=== PATIENT | female | born 1940 | race Caucasian/White ===

== ENCOUNTER → 2019-06-22 | Outpatient (CLI) | payer MEDICARE ==
[2019-06-22 09:55] LABS: ABG BASE EXCESS 22.6 mmol/L (-2.0-2.0); ABG HCO3 50.4 mmol/l (22-26); ABG O2 SATURATION 95.9 % (95-97); ARTERIAL BLOOD GAS PH 7.465 (7.35-7.45); ARTERIAL BLOOD GAS PO2 75.3 mmHg (80-90)
[2019-06-22 10:58] LABS: BUN 11 mg/dl (7-24); CREATININE 0.59 mg/dL (0.55-1.02); SODIUM 140 mmol/L (136-145)
[2019-06-22 11:21] LABS: CHLORIDE 88 mmol/L (98-107)
== END | disposition home or self-care (01) ==
LOC: LAB 09:30
PROVIDERS: Internal Medicine Critical Care Medicine
DX: I11.0 Hypertensive heart disease with heart failure (principal); I50.23 Acute on chronic systolic (congestive) heart failure; M12.9 Arthropathy, unspecified; L03.113 Cellulitis of right upper limb; K21.9 Gastro-esophageal reflux disease without esophagitis; M62.81 Muscle weakness (generalized); J96.00 Acute respiratory failure, unspecified whether with hypoxia or hypercapnia; Z68.42 Body mass index [BMI] 45.0-49.9, adult; J44.9 Chronic obstructive pulmonary disease, unspecified; E66.01 Morbid (severe) obesity due to excess calories; I48.91 Unspecified atrial fibrillation

== ENCOUNTER 2019-09-05 11:24 | Inpatient (IN) | payer MEDICARE ==
[~2019-09-05] VITALS: Ht 157.4 cm; Wt 115.8 kg
[~2019-09-05 11:24] MED LIST: MUCINEX ER600 MG PO
[2019-09-05 11:33] VITALS: BP 108/62
[2019-09-05 12:44] LABS: BASO % 0.3 % (0.0-1.0); EOS % 0.3 % (1.0-4.0); HEMATOCRIT 33.7 % (37.0-47.0); HEMOGLOBIN 10.1 g/dl (12.0-16.0); LYMPH # 1.1 10*3/uL (1.3-4.4); MEAN CORPUSCULAR HGB 31.2 pg (27.0-31.0); MEAN PLATELET VOLUME 11.5 fl (9.6-12.3); MONO # 0.8 10*3/uL (0.1-1.0); NEUT # 5.8 10*3/uL (2.3-7.9); NEUT % 74.6 % (47.0-73.0); PLATELET COUNT AUTOMATED 177 10*3/uL (130-400); RED BLOOD COUNT 3.24 10*6/uL (4.10-5.10); RED CELL DISTRI WIDTH 13.3 % (0-14.5); WHITE BLOOD COUNT 7.8 10*3/uL (4.8-10.8)
[2019-09-05 13:01] LABS: ALBUMIN 2.5 gm/dl (3.1-4.5); ALKALINE PHOSPHATASE 82 U/L (45-117); BUN 12 mg/dl (7-24); CHLORIDE 93 mmol/L (98-107); POTASSIUM 4.2 mmol/L (3.5-5.1); SGOT/AST 13 IU/L (3-35); SGPT/ALT 15 U/L (12-78); SODIUM 138 mmol/L (136-145); TOTAL PROTEIN 7.6 gm/dL (6.4-8.2)
[2019-09-05 13:07] LABS: TROPONIN I < 0.015 ng/ml (<0.045)
[2019-09-05 13:09] VITALS: BP 123/60
[2019-09-05 13:40] VITALS: BP 125/68
[2019-09-05 14:50] VITALS: BP 132/68
[2019-09-05 15:40] VITALS: BP 117/31; BP 117/61
[2019-09-05 15:45] LABS: ABG BASE EXCESS 14.8 mmol/L (-2.0-2.0); ARTERIAL BLOOD GAS PH 7.421 (7.35-7.45)
[2019-09-05] MEDS ORDERED: BREO ELLIPTA 11 EACH INH (19:56)
[2019-09-05] MEDS ORDERED: ASPIRIN81 M1 PO (19:56)
[2019-09-05] MEDS ORDERED: MELATONIN3 M3 PO (19:58)
[2019-09-05] MEDS ORDERED: METOPROLOL SUC100 M1 PO (19:59)
[2019-09-05 20:00] VITALS: BP 109/64
[2019-09-05] MEDS ORDERED: MULTIVITAMINS1 EAC5 PO (20:01)
[2019-09-05] MEDS ORDERED: NATURE'S BLEND F1 MG PO (20:02)
[2019-09-05] MEDS ORDERED: ELIQUIS5 M1 PO (20:02)
[2019-09-05] MEDS ORDERED: GLUCOSAMINE CH1 EAC1 PO (20:04)
[2019-09-05] MEDS ORDERED: FEROSUL325 MG PO (20:04)
[2019-09-05] MEDS ORDERED: LASIX40 MG PO (20:05)
[2019-09-05] MEDS ORDERED: PANTOPRAZOLE SO40 MG PO (20:08)
[2019-09-05] MEDS ORDERED: KLOR-CON M2020 ME1 PO (20:11)
[2019-09-05] MEDS ORDERED: TYLENOL325 M1 PO (20:12)
[2019-09-05] MEDS ORDERED: Ipratropium Brom3 ML INH (20:13)
[2019-09-05] MEDS ORDERED: ACCUNEB 0.1.25 MG/1 INH (20:14)
[2019-09-05] MEDS ORDERED: DEPO MEDRO40 MG/1 ML IM (20:15)
[2019-09-05] MEDS ORDERED: IMODIUM A-D2 M2 PO (20:18)
[2019-09-05] MEDS ORDERED: MILK OF MA400 MG/5 M PO (20:20)
[2019-09-05] MEDS ORDERED: TUSSIN DM 10 M237 M1 PO (20:21)
[2019-09-06 00:10] VITALS: BP 119/68
[2019-09-06 06:30] LABS: BASO % 0.2 % (0.0-1.0); HEMATOCRIT 34.9 % (37.0-47.0); HEMOGLOBIN 10.3 g/dl (12.0-16.0); LYMPH # 0.9 10*3/uL (1.3-4.4); LYMPH % 13.6 % (27.0-41.0); MEAN CELL VOLUME 102.6 fl (81.0-99.0); MEAN CORPUSCULAR HGB 30.3 pg (27.0-31.0); MEAN CORPUSCULAR HGB CONC 29.5 g/dl (33.0-37.0); MEAN PLATELET VOLUME 11.5 fl (9.6-12.3); MONO # 0.3 10*3/uL (0.1-1.0); MONO % 4.8 % (3.0-9.0); NEUT # 5.2 10*3/uL (2.3-7.9); PLATELET COUNT AUTOMATED 212 10*3/uL (130-400); RED CELL DISTRI WIDTH 13.3 % (0-14.5); WHITE BLOOD COUNT 6.6 10*3/uL (4.8-10.8)
[2019-09-06 06:36] LABS: INTERNATIONAL NORM RATIO 1.1 (2.0-3.5)
[2019-09-06 06:58] LABS: ALBUMIN 2.5 gm/dl (3.1-4.5); ALKALINE PHOSPHATASE 84 U/L (45-117); BUN 21 mg/dl (7-24); CHLORIDE 92 mmol/L (98-107); CHOLESTEROL 155 mg/dL (<200); CREATININE 0.99 mg/dL (0.55-1.02); HDL CHOLESTEROL 58 mg/dl (40-60); LDL CHOLESTEROL 81 mg/dL (9-159); PHOSPHOROUS 2.8 mg/dL (2.5-4.9); POTASSIUM 4.1 mmol/L (3.5-5.1); SGOT/AST 10 IU/L (3-35); SGPT/ALT 15 U/L (12-78); SODIUM 137 mmol/L (136-145); TRIGLYCERIDES 80 mg/dl (<150); VLDL CHOLESTEROL 16 mg/dL (6-40)
[2019-09-06 07:02] LABS: THYROID STIM HORMONE (HS) 0.279 uIU/ml (0.358-4.75)
[2019-09-06 07:05] LABS: VITAMIN D, 25-HYDROXY 32.4 ng/mL (30-100)
[2019-09-06 08:00] VITALS: BP 128/78
[2019-09-06 12:00] VITALS: BP 129/68
[2019-09-06 16:00] VITALS: BP 118/55
[2019-09-06 20:00] VITALS: BP 149/70
[2019-09-06 23:36] VITALS: BP 126/71
[2019-09-07] VITALS (7 sets, daily range): BP systolic 113–153; BP diastolic 69–92
[2019-09-07 06:47] LABS: BASO % 0.2 % (0.0-1.0); HEMATOCRIT 33.6 % (37.0-47.0); HEMOGLOBIN 9.9 g/dl (12.0-16.0); LYMPH # 1.1 10*3/uL (1.3-4.4); LYMPH % 12.5 % (27.0-41.0); MEAN CELL VOLUME 103.4 fl (81.0-99.0); MEAN CORPUSCULAR HGB 30.5 pg (27.0-31.0); MEAN CORPUSCULAR HGB CONC 29.5 g/dl (33.0-37.0); MEAN PLATELET VOLUME 11.8 fl (9.6-12.3); MONO # 0.4 10*3/uL (0.1-1.0); MONO % 4.1 % (3.0-9.0); NEUT # 6.8 10*3/uL (2.3-7.9); NEUT % 80.5 % (47.0-73.0); PLATELET COUNT AUTOMATED 216 10*3/uL (130-400); RED BLOOD COUNT 3.25 10*6/uL (4.10-5.10); RED CELL DISTRI WIDTH 13.4 % (0-14.5); WHITE BLOOD COUNT 8.5 10*3/uL (4.8-10.8)
[2019-09-07 07:21] LABS: CHLORIDE 95 mmol/L (98-107); CREATININE 1.01 mg/dL (0.55-1.02)
[2019-09-07 07:49] LABS: SODIUM 137 mmol/L (136-145)
[2019-09-07 07:51] LABS: BUN 32 mg/dl (7-24); POTASSIUM 5.2 mmol/L (3.5-5.1)
[2019-09-08] VITALS: BP 130/90
[2019-09-08 06:52] LABS: HEMATOCRIT 33.9 % (37.0-47.0); MEAN CORPUSCULAR HGB 30.7 pg (27.0-31.0); MEAN CORPUSCULAR HGB CONC 29.5 g/dl (33.0-37.0); MEAN PLATELET VOLUME 11.6 fl (9.6-12.3); PLATELET COUNT AUTOMATED 231 10*3/uL (130-400); RED BLOOD COUNT 3.26 10*6/uL (4.10-5.10); RED CELL DISTRI WIDTH 13.5 % (0-14.5); WHITE BLOOD COUNT 9.5 10*3/uL (4.8-10.8)
[2019-09-08 07:13] LABS: PLATELET SUFFICIENCY NORMAL (NORMAL); POLYCHROMASIA SLIGHT; TOTAL CELLS COUNTED 100 #CELLS
[2019-09-08 07:14] LABS: TOXIC GRANULATION SLIGHT
[2019-09-08 07:22] LABS: BUN 32 mg/dl (7-24); CHLORIDE 95 mmol/L (98-107); POTASSIUM 5.6 mmol/L (3.5-5.1); SODIUM 136 mmol/L (136-145)
[2019-09-08 07:24] LABS: CREATININE 0.97 mg/dL (0.55-1.02)
[2019-09-08 08:04] VITALS: BP 118/84
[2019-09-08 12:00] VITALS: BP 132/63
[2019-09-08 14:22] LABS: CREATININE 1.07 mg/dL (0.55-1.02); POTASSIUM 5.1 mmol/L (3.5-5.1)
[2019-09-08] MEDS ORDERED: PREDNISONE10 MG PO (14:27)
[2019-09-08] MEDS ORDERED: DOXYCYCLINE100 M3 PO (14:27)
[2019-09-08] MEDS ORDERED: K-TAB20 MEQ PO (14:27)
[2019-09-08 15:07] LABS: ACID FAST SPEC PROCESSING Concentration (.)
== END 2019-09-08 16:51 | disposition other institution (70) | DRG 871 ==
LOC: ED 11:24 → 4E 13:37 → EDHOLD 13:37 → 4E 14:34
PROVIDERS: Internal Medicine Critical Care Medicine; Nurse Practitioner Family; Student in an Organized Health Care Education/Training Program; ADMIT Family Medicine
PROC: 5A09357 Assistance with Respiratory Ventilation, Less than 24 Consecutive Hours, Continuous Positive Airway Pressure (ICD-10-PCS; principal; 2019-09-06)
PROC: 0B958ZZ Drainage of Right Middle Lobe Bronchus, Via Natural or Artificial Opening Endoscopic (ICD-10-PCS; 2019-09-07)
PROC: 0B918ZZ Drainage of Trachea, Via Natural or Artificial Opening Endoscopic (ICD-10-PCS; 2019-09-07)
PROC: 0B938ZZ Drainage of Right Main Bronchus, Via Natural or Artificial Opening Endoscopic (ICD-10-PCS; 2019-09-07)
PROC: 0B928ZZ Drainage of Carina, Via Natural or Artificial Opening Endoscopic (ICD-10-PCS; 2019-09-07)
PROC: 0B988ZZ Drainage of Left Upper Lobe Bronchus, Via Natural or Artificial Opening Endoscopic (ICD-10-PCS; 2019-09-07)
PROC: 0B978ZZ Drainage of Left Main Bronchus, Via Natural or Artificial Opening Endoscopic (ICD-10-PCS; 2019-09-07)
PROC: 5A09357 Assistance with Respiratory Ventilation, Less than 24 Consecutive Hours, Continuous Positive Airway Pressure (ICD-10-PCS; 2019-09-07)
PROC: 0B968ZZ Drainage of Right Lower Lobe Bronchus, Via Natural or Artificial Opening Endoscopic (ICD-10-PCS; 2019-09-07)
PROC: 0B998ZZ Drainage of Lingula Bronchus, Via Natural or Artificial Opening Endoscopic (ICD-10-PCS; 2019-09-07)
PROC: 0B948ZZ Drainage of Right Upper Lobe Bronchus, Via Natural or Artificial Opening Endoscopic (ICD-10-PCS; 2019-09-07)
PROC: 5A09357 Assistance with Respiratory Ventilation, Less than 24 Consecutive Hours, Continuous Positive Airway Pressure (ICD-10-PCS; 2019-09-08)
DX: A41.9 Sepsis, unspecified organism (principal); J18.9 Pneumonia, unspecified organism; E43 Unspecified severe protein-calorie malnutrition; T17.590A Other foreign object in bronchus causing asphyxiation, initial encounter; J96.12 Chronic respiratory failure with hypercapnia; J44.0 Chronic obstructive pulmonary disease with (acute) lower respiratory infection; Z68.42 Body mass index [BMI] 45.0-49.9, adult; J44.1 Chronic obstructive pulmonary disease with (acute) exacerbation; D68.69 Other thrombophilia; J96.11 Chronic respiratory failure with hypoxia; E87.3 Alkalosis; I50.9 Heart failure, unspecified; I11.0 Hypertensive heart disease with heart failure; J20.9 Acute bronchitis, unspecified; E87.5 Hyperkalemia; D53.9 Nutritional anemia, unspecified; R73.9 Hyperglycemia, unspecified; E87.8 Other disorders of electrolyte and fluid balance, not elsewhere classified; K21.9 Gastro-esophageal reflux disease without esophagitis; G47.00 Insomnia, unspecified; G47.33 Obstructive sleep apnea (adult) (pediatric); I27.20 Pulmonary hypertension, unspecified; I48.91 Unspecified atrial fibrillation; E66.01 Morbid (severe) obesity due to excess calories; R65.20 Severe sepsis without septic shock; X58.XXXA Exposure to other specified factors, initial encounter; Y93.89 Activity, other specified; Z88.8 Allergy status to other drugs, medicaments and biological substances; Z79.82 Long term (current) use of aspirin; Z79.899 Other long term (current) drug therapy; Z88.0 Allergy status to penicillin

== ENCOUNTER 2021-01-20 00:18 | Inpatient (IN) | payer MEDICARE, MEDICAID ==
[2021-01-20] VITALS (7 sets, daily range): BP systolic 106–128; BP diastolic 52–89
[~2021-01-20] VITALS: Ht 157.5 cm; Wt 144.3 kg
[~2021-01-20 00:18] MED LIST changes: +ACCUNEB 0.1.25 MG/1 INH; +ASPIRIN81 M1 PO; +BREO ELLIPTA 11 EACH INH; +DEPO MEDRO40 MG/1 ML IM; +DOXYCYCLINE100 M3 PO; +ELIQUIS5 M1 PO; +FEROSUL325 MG PO; +GLUCOSAMINE CH1 EAC1 PO; +IMODIUM A-D2 M2 PO; +Ipratropium Brom3 ML INH; +K-TAB20 MEQ PO; +KLOR-CON M2020 ME1 PO; +LASIX40 MG PO; +MELATONIN3 M3 PO; +METOPROLOL SUC100 M1 PO; +MILK OF MA400 MG/5 M PO; +MULTIVITAMINS1 EAC5 PO; +NATURE'S BLEND F1 MG PO; +PANTOPRAZOLE SO40 MG PO; +PREDNISONE10 MG PO; +TUSSIN DM 10 M237 M1 PO; +TYLENOL325 M1 PO
[2021-01-20 00:51] LABS: HEMATOCRIT 41.9 % (37.0-47.0); MEAN CELL VOLUME 98.4 fl (81.0-99.0); MEAN CORPUSCULAR HGB 30.8 pg (27.0-31.0); MEAN CORPUSCULAR HGB CONC 31.3 g/dl (33.0-37.0); MEAN PLATELET VOLUME 12.7 fl (9.6-12.3); PLATELET COUNT AUTOMATED 114 10*3/uL (130-400); RED BLOOD COUNT 4.26 10*6/uL (4.10-5.10); RED CELL DISTRI WIDTH 13.8 % (0-14.5); WHITE BLOOD COUNT 7.4 10*3/uL (4.8-10.8)
[2021-01-20 01:05] LABS: BILIRUBIN Negative (Negative); BLOOD 3+ (Negative); CLARITY Cloudy (Clear); COLOR Yellow (Yellow); GLUCOSE Negative (Negative); KETONE Negative (Negative); LEUKO ESTERASE 3+ (Negative); NITRITE Negative (Negative)
[2021-01-20 01:10] LABS: PLATELET SUFFICIENCY LOW (NORMAL); TOTAL CELLS COUNTED 100 #CELLS
[2021-01-20 01:13] LABS: ALBUMIN 3.4 gm/dl (3.1-4.5); ALKALINE PHOSPHATASE 138 U/L (45-117); BUN 23 mg/dl (7-24); CHLORIDE 103 mmol/L (98-107); CREATININE 1.03 mg/dL (0.55-1.02); POTASSIUM 4.3 mmol/L (3.5-5.1); SGOT/AST 14 IU/L (3-35); SGPT/ALT 20 U/L (12-78); SODIUM 140 mmol/L (136-145); TOTAL PROTEIN 7.5 gm/dL (6.4-8.2)
[2021-01-20 01:13] LABS: EPITHELIAL CELLS TNTC
[2021-01-20 01:14] LABS: TROPONIN I < 0.015 ng/ml (<0.045)
[2021-01-20 01:14] LABS: BACTERIA 1+; RBC 21-30 rbc/hpf (0-2); WBC 31-40 wbc/hpf (0-5)
[2021-01-20] MEDS ORDERED: TRAD5TAB1 PO (04:33)
[2021-01-20] MEDS ORDERED: NAPROXEN375 MG PO (04:35)
[2021-01-20] MEDS ORDERED: XARE20MG PO (04:58)
[2021-01-20 06:47] LABS: BASO % 0.1 % (0.0-1.0); HEMATOCRIT 35.8 % (37.0-47.0); LYMPH # 0.8 10*3/uL (1.3-4.4); LYMPH % 6.9 % (27.0-41.0); MEAN CELL VOLUME 98.4 fl (81.0-99.0); MEAN CORPUSCULAR HGB 31.3 pg (27.0-31.0); MEAN CORPUSCULAR HGB CONC 31.8 g/dl (33.0-37.0); MEAN PLATELET VOLUME 12.5 fl (9.6-12.3); MONO # 0.9 10*3/uL (0.1-1.0); MONO % 7.7 % (3.0-9.0); NEUT # 10.1 10*3/uL (2.3-7.9); NEUT % 84.9 % (47.0-73.0); PLATELET COUNT AUTOMATED 112 10*3/uL (130-400); RED BLOOD COUNT 3.64 10*6/uL (4.10-5.10)
[2021-01-20 07:02] LABS: ALBUMIN 2.6 gm/dl (3.1-4.5); ALKALINE PHOSPHATASE 106 U/L (45-117); BUN 20 mg/dl (7-24); CHLORIDE 109 mmol/L (98-107); CREATININE 0.95 mg/dL (0.55-1.02); POTASSIUM 4.3 mmol/L (3.5-5.1); SGOT/AST 13 IU/L (3-35); SGPT/ALT 17 U/L (12-78); SODIUM 141 mmol/L (136-145); TOTAL PROTEIN 6.3 gm/dL (6.4-8.2)
[2021-01-21 08:00] VITALS: BP 123/51
[2021-01-21 12:00] VITALS: BP 127/60
[2021-01-21 16:00] VITALS: BP 127/60
[2021-01-21 20:00] VITALS: BP 129/76
[2021-01-22] VITALS: BP 120/59
[2021-01-22 08:00] VITALS: BP 124/60
[2021-01-22] MEDS ORDERED: MACRODANTIN100 M1 PO (10:49)
== END 2021-01-22 12:30 | DRG 871 ==
LOC: ED 00:18 → 4E 02:13 → EDHOLD 02:13 → 4E 03:03
PROVIDERS: Internal Medicine; ADMIT Internal Medicine; ATTEND Internal Medicine
PROC: 5A09357 Assistance with Respiratory Ventilation, Less than 24 Consecutive Hours, Continuous Positive Airway Pressure (ICD-10-PCS; principal; 2021-01-21)
PROC: 5A09357 Assistance with Respiratory Ventilation, Less than 24 Consecutive Hours, Continuous Positive Airway Pressure (ICD-10-PCS; 2021-01-22)
DX: A41.9 Sepsis, unspecified organism (principal); N17.0 Acute kidney failure with tubular necrosis; E43 Unspecified severe protein-calorie malnutrition; N39.0 Urinary tract infection, site not specified; J96.11 Chronic respiratory failure with hypoxia; D68.69 Other thrombophilia; I50.32 Chronic diastolic (congestive) heart failure; I13.0 Hypertensive heart and chronic kidney disease with heart failure and stage 1 through stage 4 chronic kidney disease, or unspecified chronic kidney disease; Z68.43 Body mass index [BMI] 50.0-59.9, adult; G47.33 Obstructive sleep apnea (adult) (pediatric); N18.9 Chronic kidney disease, unspecified; I48.91 Unspecified atrial fibrillation; K21.9 Gastro-esophageal reflux disease without esophagitis; R65.20 Severe sepsis without septic shock; J44.9 Chronic obstructive pulmonary disease, unspecified; B96.1 Klebsiella pneumoniae [K. pneumoniae] as the cause of diseases classified elsewhere; E66.9 Obesity, unspecified; E11.65 Type 2 diabetes mellitus with hyperglycemia; E11.22 Type 2 diabetes mellitus with diabetic chronic kidney disease; Z88.0 Allergy status to penicillin; Z88.8 Allergy status to other drugs, medicaments and biological substances; Z83.3 Family history of diabetes mellitus; Z80.42 Family history of malignant neoplasm of prostate; Z87.01 Personal history of pneumonia (recurrent); Z79.82 Long term (current) use of aspirin; Z79.899 Other long term (current) drug therapy; Z79.01 Long term (current) use of anticoagulants

== ENCOUNTER → 2024-10-30 | Outpatient (CLI) | payer MEDICARE, MEDICAID ==
[~2024-10-30] MED LIST changes: +AMARYL4 MG PO; +CALMOSEPTINE OI71 GM T; +DAILY VITE1 EACH PO; +FEROSUL325 M1 PO; +FLONASE ALLERG9.9 ML NAS; +GLUCOSAMINE CO1 EACH PO; +HUMALOG100 UNIT/1 SC; +K-TAB10 MEQ PO; +LASIX20 MG PO; +MACRODANTIN100 M1 PO; +MULTIPLE VITAM1 EAC2 PO; +Metolazone5 MG PO; +NAPROXEN375 MG PO; +NOVOLOG10 ML SC; +NYSTATIN1 EAC3 MC; +POTASSIUM CHLO10 ME5 PO; +POTASSIUM CHLO20 ME3 PO; +PROSOURCE275 GM PO; +TRAD5TAB1 PO; +TRULICITY1.5 MG/0.5 SC; +TYLENOL325 M2 PO; +VIBRAMYCIN HYC100 MG PO; +VOLTAREN ARTHRI20 GM T; +XARE20MG PO; +[UNRECOGNIZED DRUG - REMARK] PO
== END | disposition home or self-care (01) ==
LOC: WOUNDCARE 01:36
PROVIDERS: ATTEND Nurse Practitioner Family
DX: L89.893 Pressure ulcer of other site, stage 3 (principal); R26.2 Difficulty in walking, not elsewhere classified; E11.9 Type 2 diabetes mellitus without complications; I11.0 Hypertensive heart disease with heart failure; I50.9 Heart failure, unspecified; J44.9 Chronic obstructive pulmonary disease, unspecified; I48.91 Unspecified atrial fibrillation; K21.9 Gastro-esophageal reflux disease without esophagitis; G47.30 Sleep apnea, unspecified; Z98.890 Other specified postprocedural states; Z79.82 Long term (current) use of aspirin; Z79.899 Other long term (current) drug therapy; Z74.1 Need for assistance with personal care